=== PATIENT | female | born 1935 | race Caucasian/White ===

== ENCOUNTER 2018-08-30 12:53 | Observation (INO) ==
[2018-08-30] MEDS ORDERED: SODIUM CHLORIDE 0.9% 1,000 ML IV STA (13:26)
[2018-08-30 13:58] LABS: Basophils % 0.2 % (0.0-0.8); Eosinophils % 0.3 % (0.00-10.9); Hematocrit 37.5 VOL% (35.7-47.0); Hemoglobin 12.2 GM/DL (12.0-16.0); Immature Granulocytes % 0.5 %; Immature Granulocytes Absolute 0.06 #; Lymphocytes # 0.6 10*3/uL (1.4-4.0); Lymphocytes % 5.3 % (21.3-54.2); Mean Corpuscular HGB Conc 32.5 GM/DL (32-36); Mean Corpuscular Hemoglobin 29 PG (27-34); Mean Corpuscular Volume 87.6 FL (87-102); Mean Platelet Volume 10.5 FL (9.6-12.0); Monocytes # 0.6 10*3/uL (0.11-0.8); Monocytes % 4.8 % (1.7-12.7); Neutrophils # 10.3 10*3/uL (1.4-7.4); Neutrophils % 88.9 % (38.7-73.9); Platelet Count 168 T/CUMM (130-400); Red Blood Count 4.28 MC/CUMM (3.8-5.5); Red Cell Distribution Width 13.2 % (9.3-17.3); White Blood Count 11.6 T/CUMM (4-12)
[2018-08-30 14:08] LABS: PT Patient Result 10.8 SECS; Partial Thromboplastin Time 22.5 SECS (0-40)
[2018-08-30 14:09] LABS: Amorphous Crystals,Urine Occasional /HPF (Few); Apearance,Urine Slightly Hazy (Clear); Bacteria,Urine Moderate /HPF (Few); Bilirubin,Urine Negative (Negative); Blood, Urine Small mg/dL (Negative); Glucose,Urine (UA) Negative (Negative); Hyaline Casts,Urine 3 /LPF (0-3); Ketones,Urine Negative (Negative); Mucus,Urine Occasional /LPF (Occasional); Nitrite,Urine Positive (Negative); Protein,Urine 30 MG/DL; Squamous Epithelial Cell,Urine Occasional /HPF (0-10); Urine Color Yellow (Yellow); Urine Specific Gravity 1.013 (1.001-1.035); Urine Urobilinogen < 2.0 EU/DL (0.2-1.0); WBC,Urine 42 /HPF (0-6)
[2018-08-30] MEDS ORDERED: LEVOFLOXACIN INJ 500 MG in PREMIX 1 EACH IV STA (14:48)
[2018-08-30 14:49] LABS: Albumin 3.7 G/DL (3.4-5.0); Bilirubin,Total 1.2 MG/DL (0.2-1.0); Calcium 8.5 MG/DL (8.5-10.1); Osmolality,Calculated 284.5 MOS/KG (273-304); Potassium 2.6 MMOL/L (3.5-5.1); Total Protein 6.9 G/DL (6.4-8.3)
[2018-08-30] MEDS ORDERED: GABAPENTIN 300 MG CAPSULE PO STA (14:51)
[2018-08-30] MEDS ORDERED: POTASSIUM CHLORIDE 20 MEQ TABLET PO STA (15:04)
[2018-08-30] MEDS ORDERED: DEXTROSE 50% 25 GM/50 ML SYRINGE IV PRN (15:40)
[2018-08-30] MEDS ORDERED: BISACODYL 5 MG TABLET PO PRN (15:40)
[2018-08-30] MEDS ORDERED: DOCUSATE SODIUM 100 MG CAPSULE PO PRN (15:40)
[2018-08-30] MEDS ORDERED: GLUCAGON 1 MG VIAL IM PRN (15:40)
[2018-08-30] MEDS ORDERED: ACETAMINOPHEN 325 MG TABLET PO PRN (15:40)
[2018-08-30] MEDS ORDERED: ONDANSETRON 4 MG/2 ML VIAL IV PRN (15:40)
[2018-08-30 16:21] LABS: Risk Ratio 4.36; Thyroid Stimulating Hormone 0.181 uIU/ml (0.358-3.74); VLDL CHOLESTEROL 23.6 MG/DL
[2018-08-30] MEDS: INSULIN LISPRO 100 UNIT/ML SUBCUT SCH ×2 (16:58→21:26)
[2018-08-30] MEDS: ENOXAPARIN 30 MG/0.3 ML SYRINGE SUBCUT SCH (17:08)
[2018-08-30] MEDS: POTASSIUM CHLORIDE RIDER 10 MEQ in PREMIX 1 EACH IV SCH ×4 (18:14→23:35)
[2018-08-30 20:16] LABS: Basophils % 0.1 % (0.0-0.8); Eosinophils % 0.4 % (0.00-10.9); Hematocrit 34.5 VOL% (35.7-47.0); Immature Granulocytes % 0.3 %; Immature Granulocytes Absolute 0.02 #; Lymphocytes % 13.2 % (21.3-54.2); Mean Corpuscular HGB Conc 31.9 GM/DL (32-36); Mean Corpuscular Hemoglobin 28 PG (27-34); Mean Corpuscular Volume 88.9 FL (87-102); Mean Platelet Volume 10.2 FL (9.6-12.0); Monocytes # 0.1 10*3/uL (0.11-0.8); Monocytes % 1.4 % (1.7-12.7); Neutrophils # 6.6 10*3/uL (1.4-7.4); Neutrophils % 84.6 % (38.7-73.9); Platelet Count 125 T/CUMM (130-400); Red Blood Count 3.88 MC/CUMM (3.8-5.5); Red Cell Distribution Width 13.4 % (9.3-17.3); White Blood Count 7.8 T/CUMM (4-12)
[2018-08-30 20:36] LABS: Albumin 3.3 G/DL (3.4-5.0); Bilirubin,Total 1.2 MG/DL (0.2-1.0); INR 1.1; Osmolality,Calculated 283.4 MOS/KG (273-304); PT Patient Result 11.7 SECS; Potassium 3.5 MMOL/L (3.5-5.1); Total Protein 6.5 G/DL (6.4-8.3)
[2018-08-30] MEDS: GABAPENTIN 300 MG CAPSULE PO SCH (21:21)
[2018-08-30] MEDS: traZODone 50 MG TABLET PO SCH (21:21)
[2018-08-30] MEDS: rOPINIRole 1 MG TABLET PO SCH (21:21)
[2018-08-30] MEDS: SODIUM CHLORIDE 0.9% 1,000 ML IV SCH (21:26)
[2018-08-30] MEDS: oxyCODONE/ACETAMINOPHEN 5-325 MG TABLET PO PRN (21:54)
[2018-08-31] MEDS: POTASSIUM CHLORIDE RIDER 10 MEQ in PREMIX 1 EACH IV SCH ×2 (00:29→01:39)
[2018-08-31] MEDS ORDERED: POTASSIUM CHLORIDE RIDER 10 MEQ in PREMIX 1 EACH IV SCH (02:00)
[2018-08-31 02:14] LABS: Apearance,Urine CLEAR (Clear); Bilirubin,Urine Negative (Negative); Blood, Urine Small mg/dL (Negative); Glucose,Urine (UA) Negative (Negative); Ketones,Urine Negative (Negative); Nitrite,Urine Positive (Negative); Protein,Urine Negative; RBC,Urine 7 /HPF (0-4); Squamous Epithelial Cell,Urine Occasional /HPF (0-10); Urine Color Yellow (Yellow); Urine Specific Gravity 1.044 (1.001-1.035); Urine Urobilinogen < 2.0 EU/DL (0.2-1.0); WBC,Urine 26 /HPF (0-6)
[2018-08-31 04:37] LABS: Basophils % 0.2 % (0.0-0.8); Eosinophils % 0.3 % (0.00-10.9); Hematocrit 31.4 VOL% (35.7-47.0); Hemoglobin 10.3 GM/DL (12.0-16.0); Immature Granulocytes % 0.6 %; Immature Granulocytes Absolute 0.08 #; Lymphocytes # 1.5 10*3/uL (1.4-4.0); Lymphocytes % 10.4 % (21.3-54.2); Mean Corpuscular HGB Conc 32.8 GM/DL (32-36); Mean Corpuscular Hemoglobin 29 PG (27-34); Monocytes # 1.2 10*3/uL (0.11-0.8); Monocytes % 8.3 % (1.7-12.7); Neutrophils # 11.4 10*3/uL (1.4-7.4); Neutrophils % 80.2 % (38.7-73.9); Platelet Count 149 T/CUMM (130-400); Red Blood Count 3.57 MC/CUMM (3.8-5.5); White Blood Count 14.2 T/CUMM (4-12)
[2018-08-31 04:40] LABS: Calcium 7.6 MG/DL (8.5-10.1); Osmolality,Calculated 287.3 MOS/KG (273-304); Potassium 3.7 MMOL/L (3.5-5.1)
[2018-08-31] MEDS ORDERED: MAGNESIUM SULF RIDER 2 GM in PREMIX 1 EACH IV PRN (07:35)
[2018-08-31] MEDS ORDERED: MAGNESIUM SULF RIDER 4 GM in PREMIX 1 EACH IV PRN (07:35)
[2018-08-31] MEDS: INSULIN LISPRO 100 UNIT/ML SUBCUT SCH ×4 (07:46→22:07)
[2018-08-31] MEDS: rOPINIRole 1 MG TABLET PO SCH ×2 (08:17→21:10)
[2018-08-31] MEDS: FUROSEMIDE 20 MG TABLET PO SCH (08:17)
[2018-08-31] MEDS: MULTIVITAMIN (BEROCCA) TABLET PO SCH (08:17)
[2018-08-31] MEDS: ASPIRIN CHEW 81 MG TABLET PO SCH (08:17)
[2018-08-31] MEDS: PANTOPRAZOLE 40 MG TABLET PO SCH (08:17)
[2018-08-31] MEDS: CETIRIZINE 10 MG TABLET PO SCH (08:17)
[2018-08-31] MEDS: GABAPENTIN 300 MG CAPSULE PO SCH ×3 (08:17→21:10)
[2018-08-31] MEDS: ENOXAPARIN 30 MG/0.3 ML SYRINGE SUBCUT SCH ×2 (14:22→15:15)
[2018-08-31] MEDS ORDERED: LEVOFLOXACIN INJ 250 MG in PREMIX 1 EACH IV SCH (15:00)
[2018-08-31] MEDS: SODIUM CHLORIDE 0.9% 1,000 ML IV SCH (21:11)
[2018-08-31] MEDS: traZODone 50 MG TABLET PO SCH (21:11)
[2018-08-31] MEDS: oxyCODONE/ACETAMINOPHEN 5-325 MG TABLET PO PRN (21:13)
[2018-09-01] MEDS: INSULIN LISPRO 100 UNIT/ML SUBCUT SCH ×2 (08:03→12:20)
[2018-09-01] MEDS: CETIRIZINE 10 MG TABLET PO SCH (08:40)
[2018-09-01] MEDS: ASPIRIN CHEW 81 MG TABLET PO SCH (08:40)
[2018-09-01] MEDS: MULTIVITAMIN (BEROCCA) TABLET PO SCH (08:40)
[2018-09-01] MEDS: rOPINIRole 1 MG TABLET PO SCH (08:40)
[2018-09-01] MEDS: FUROSEMIDE 20 MG TABLET PO SCH (08:41)
[2018-09-01] MEDS: PANTOPRAZOLE 40 MG TABLET PO SCH (08:41)
[2018-09-01] MEDS: GABAPENTIN 300 MG CAPSULE PO SCH (08:41)
[2018-09-01 11:43] LABS: Free T4 (Free Thyroxine) 0.93 NG/DL (0.76-1.46)
[2018-09-01 12:23] VITALS: BP 134/91
[2018-09-01] MEDS ORDERED: ENOXAPARIN 40 MG/0.4 ML SYRINGE SUBCUT SCH (16:00)
[2018-09-02] MEDS ORDERED: LEVOFLOXACIN 250 MG TABLET PO SCH (09:00)
== END 2018-09-01 14:20 | disposition home or self-care (01) ==
LOC: EDSEX → EDBD → EDUNIT# → N.ED 12:53 → N.EDINP 15:04 → INTOOBSV 15:04 → SUATTDRO 15:04 → N.5E 16:40
PROVIDERS: ADMIT Internal Medicine; ATTEND Hospitalist